=== PATIENT | female | born 1970 | race Caucasian/White ===

== ENCOUNTER 2023-08-04 00:25 | Day surgery (SDC) | payer OTHER, SELFPAY ==
--- NOTE | 2023-07-29 18:05 | PC.NURSE ---
Report to the Outpatient Waiting Room, entrance under the green pavilion located off [facility], at time 0830 on date 08/04/23. Planned Procedure Time: 1030. Time changes happen often and if your time is changed the preop area will call you the afternoon before. - You and your visitor will be asked to self-screen and do not enter if you have any COVID symptoms. - A mask is optional within the hospital at this time. Patients may have clear liquids (water, carbonated beverages, clear teas, apple juice) until 3 hours prior to surgery with a maximum of 20 ounces. 0730 - No food from midnight until time of surgery - Infants may have breast milk until 4 hours before surgery, formula 6 hours prior to surgery. - Children will be allowed to drink immediately following surgery. If applicable, please bring a bottle or sippy cup to assist with drinking. Juice, water, soda, and popsicles are readily available. For infants on formula, please bring formula the day of surgery. Pacifiers are allowed. Take the following medications with a SIP of water the morning of surgery: NONE DO NOT STOP ANY OF YOUR OTHER PRESCRIPTION MEDICATIONS PRIOR TO SURGERY ?EXCEPT THE FOLLOWING Medications to discontinue per physician N/A Date to take last dose N/A Please no make-up, nail welsh, hairspray, perfume, deodorant, or body powder the day of surgery. No jewelry (including any body piercings) or valuables the day of surgery, leave them at home. Please take a shower or bath the night before, or the morning of, surgery with an antibacterial soap. Wear comfortable, loose fitting clothing. Children are encouraged to wear pajamas. - Jewelry must be removed prior to entering the operating room. Rings and piercings that are not removed may be cut off. - The hospital will not accept responsibility for valuables. - Please leave all valuables, including medications, at home the day of surgery. If you are going home after surgery, a licensed driver/refuse collector must drive you home. - NO public transportation without another adult if you receive anesthesia. - We recommend that an adult stay with you for 24 hours following discharge. - We also recommend that you do not drive, make important decision, drink alcoholic beverages, or take any drugs that were not prescribed by your health care provider for at least 24 hours after your discharge time. For Pediatric surgeries, we recommend two adults accompany the child home. Follow any additional instructions given to you from your surgeon. If you or anyone in your household have experienced Covid symptoms in the past week, please notify your surgeon or the nurse liaison at the phone number below for possible testing. Telephone instructions given to Patient- Tania Agudelo and asked if any additional questions and then verbalized understanding. Patient advised to call surgeon office or pre surgery nurse liaison [phone] if any additional questions.
[2023-07-29 18:15] VITALS: BMI 25.1
[2023-08-04] VITALS (14 sets, daily range): BP systolic 124–157; BP diastolic 72–100; PULSE 70–96; RESP 12–20; TEMP 36.3; O2SAT 93–98; BMI 26.6
[2023-08-04] MEDS: SCOPOLAMINE 1 MG PATCH 1 PATCH TRANSDERM (09:20)
[2023-08-04] MEDS: LACTATED RINGERS 1,000 ML 30 ML IV CONT ×2 (09:20→14:10)
--- NOTE | 2023-08-04 09:21 | P.PNAN_ITS ---
Anes - Initial Pre Proc Eval Procedure: Operation Date: 08/04/23 10:30 Proposed Procedures p Upper and Lower Blepharoplasty, - Viktor Guevara MD s Temporal Brow Lift - Viktor Guevara MD Date/Time: 08/04/23 09:21 Surgeon: Viktor Guevara MD Pre Op Diagnosis: dermatochalasis Patient Data Age: 53 Gender: F Height: 1.75 m Weight: 77.2 kg Allergies Allergy/AdvReac Type Severity Reaction Status Date / Time Penicillins Allergy Rash Verified 07/29/23 17:53 Sulfa (Sulfonamide Allergy Hives Verified 07/29/23 17:53 Antibiotics) Home Medications Medication Instructions Recorded Confirmed Type No Home Medications 07/29/23 07/29/23 History Patient hx anesthesia problems: none Family hx anesthesia problems: none Results Review: All pre-operative results and documents have been reviewed as part of the pre- operative evaluation. [facility] Surgical History Surgical History (Updated 08/04/23 @ 09:22 by Angel Pickering MD) H/O: hysterectomy Social History Social History Smoking status: Never smoker Drinks per week: 5 Substance use: current Substance use type: marijuana Other substance usage details: 5mg gummies every other night for sleep Spiritual care concerns: No Anes - Eval Final PreProcedure Day of Procedure 08/04/23 09:21 Patient weight: normal Heart: regular rate and rhythm Lungs: clear to auscultation Airway: Mallampati scale class II Neurological: alert and oriented Last oral intake: >/= 8 hours ASA classification: I Emergent: no Anesthetic plan: proceed Anesthesia type and monitoring: general ETT and standard monitoring Results Review: All pre-operative results and documents have been reviewed as part of the pre- operative evaluation. Informed Consent: The patient's anesthetic plan and its attendant risks and benefits were discussed with the patient/family/POA. Questions were solicited and answers provided to the satisfaction of the patient/family/POA.
--- NOTE | 2023-08-04 10:15 | WPDHPUPDATE1 ---
History and Physical Update Update Date/Time: 08/04/23 10:15 History and Physical has been reviewed, including an updated exam of the patient. There are NO changes in the patient's condition. Risks, benefits, and alternatives have been discussed and questions answered. Patient agrees to proceed with procedure.
--- NOTE | 2023-08-04 10:16 | W.PM.PROC2 ---
Procedure Note - Detailed Date of Procedure 08/04/23 Pre-op Diagnosis dermatochalasis Post-op Diagnosis Same Procedure Performed 1. Bilateral temporal brow lift 2. Bilateral upper eyelid blepharoplasty 3. Bilateral lower lid blepharoplasty with fat grafting and tarsal strip Surgeon Viktor Guevara MD Anesthesia General Findings Lower lid / malar fat grafting Right: 4.5 cc Left: 4.5 cc Description of Procedure Preoperatively risks, benefits, alternatives were discussed in extensive detail. I want them to be very realistic about the risks involved as well as expectations. Discussed what we can and cannot improved. Limitations of this procedure. Alternative procedure as well as adjuvant procedures. This was a lengthy open-ended conversation discussing realistic expectations of outcome. Answered all of their questions to their satisfaction. Consent obtained. Marked in the preoperative holding area. When marking the upper blepharoplasty I simulated the brow lift and completed a pinch test to verify no lagophthalmos. Taken to the operating room placed supine on the operating room table. Anesthesia provided by anesthesiology. Prepped and draped in a standard sterile fashion. Stab incision was made at the abdomen in a previous scar for tumescent was infiltrated for the planned area. I made sure we gave adequate time for hemostasis before proceeding. 1% lidocaine and 0.25% Marcaine with epinephrine was used anesthetize locally with low volume of local to protect from distortion of structures. This was upper lid and lower. Eyes were irrigated with BSS. Tetracaine eyedrops placed. Corneal protectors also placed. Fat harvest Fat grafting donor site was also prepped and draped in a standard sterile fashion. Stab incision was made and tumescent was utilized for hemostasis. Suction lipectomy was completed with hand lipo and placed for gravity separation. Brow lift A 15 blade was used to make the hairline incision. Dissection was continued subcutaneous down to the level of the brow and laterally to orbital rim. I then elevated the tisue and verified my planned resection. A 15 blade was utilized to excise the excess and this was closed with 5-0 Nylon. I placed a hemostatic net for the forehead with 4-0 Nylon. Upper blepharoplasty A 15 blade was used to excise the skin flap. I thin incised the muscle and entered the nasal and middle compartments removing only what was clearly excess adiposity. I verified strict hemostasis throughout. This was closed with 5-0 fast absorbing plain gut suture. Lower blepharoplasty Needle-tip cautery was used to incise just inferior to the tarsus and a transconjunctival lower lid blepharoplasty technique. The conjunctiva was retracted with a 5-0 nylon. I elevated in a preseptal fashion down to the level of the rim. At this point I entered the nasal, middle, and lateral compartments and removed only what was clearly excess adiposity. I verified strict hemostasis throughout. I verified that the inferior oblique was protected during this procedure. With gentle pressure on the globe I verified the contour the lower lids. Both lids proceeded in the same manner. Retraction suture and corneal protectors were removed. Copious irrigated again with BSS solution. Only the central fat from the syringes were used. These were passed through [employer] microfat grafting connectors to 2.4 then 1.2 microns. 18 gauge needle utilized to make stab incisions. Fat infiltrated on tulip fat grafting cannulas in multiple plans and passes based on preoperative planning and intraoperative observation. Temporary tarsorrhaphy suture placed with 4-0 Nylon. Normal forced duction test bilateral. Irrigated with BSS throughout the procedure and at the end of the procedure. Patient was woken taken the PACU without difficulty. All instrument sponge counts were correct at the end the case. Estimated Blood Loss 15 Drain
[2023-08-04 10:35] LABS: Urine Cotinine NEGATIVE
[2023-08-04] MEDS: NEOMYCIN/POLYMYXIN/BACITRACIN OINTMENT 15 GM TUBE 1 APPLIC TOPICAL (10:41)
[2023-08-04] MEDS: ceFAZolin 2 GM/D5W 50 ML 2 GM/50 ML BAG IVPB (10:41)
[2023-08-04] MEDS: BALANCED SALT SOLN OPHTH IRRIG 30 ML BTL EACH EYE (10:41)
[2023-08-04] MEDS: BUPivacaine HCL 0.25% PF 30 ML VIAL INFILTRATE (10:41)
[2023-08-04] MEDS: [UNRECOGNIZED DRUG - OTHER] INFILTRATE (10:41)
[2023-08-04] MEDS: LIDO 1%/EPINEPHRINE 1:100,000 20 ML VIAL 30 ML INFILTRATE (10:41)
[2023-08-04] MEDS: LIDOCAINE HCL 1% INFILTRATE (10:41)
[2023-08-04] MEDS: NACL 0.9% INFILTRATE (10:41)
[2023-08-04] MEDS: TETRACAINE HCL 0.5% OPHTH SOLN 4 ML BTL 1 DROP EACH EYE (11:58)
--- NOTE | 2023-08-04 12:56 | SUR.OPER ---
1 amp of fentanyl taken out of pyxsis for this patient and given to Karolyn Vega PROFESSOR OF PHYSICS
[2023-08-04] MEDS: fentaNYL CITRATE INJ (*CRX) 100 MCG/2 ML VIAL 25 MCG IV PUSH ×2 (15:05→15:07)
[2023-08-04] MEDS: oxyCODONE HCL (*CRX) 5 MG TAB IR PO (16:12)
== END 2023-08-04 18:22 | disposition home or self-care (01) ==
PROVIDERS: Visit Provider Surgery Plastic and Reconstructive Surgery
PROC: (CPT 15824; principal; 2023-08-04 10:30)
PROC: (CPT 15824; 2023-08-04 10:30)
DX: H02.835 Dermatochalasis of left lower eyelid (principal); H02.834 Dermatochalasis of left upper eyelid; H02.831 Dermatochalasis of right upper eyelid; H02.832 Dermatochalasis of right lower eyelid
CPT/HCPCS: 15824; 15820; 15822; 80307; A9270; J0171; J0330; J0690; J1100; J2250; J2371; J2405; J2704; J3010; J7030; J7120